=== PATIENT | female | born 1990 | race Caucasian/White ===

== ENCOUNTER → 2020-10-23 | Outpatient (CLI) | payer OTHER ==
[~2020-10-23] MED LIST: HYDROCODON-ACE1 EAC4 PO; IMURAN TAB 50 M50 MG PO; OMEPRAZOLE20 M1 PO; OYSTER SHELL C500 MG PO; PREDNISONE 10 M10 MG PO; URSODIOL300 MG PO; VITAMIN D21250 MCG PO
[2020-10-24 10:13] LABS: HBSAG SCREEN Negative (Negative); HEP B CORE AB, TOT Negative (Negative)
[2020-10-24 11:13] LABS: HCV AB <0.1 (0.0-0.9)
[2020-10-24 14:13] LABS: ALDOLASE 14.3 U/L (3.3-10.3)
[2020-10-26 14:13] LABS: QUANTIFERON MITOGEN VALUE >10.00 IU/mL (.); QUANTIFERON NIL VALUE 0.06 IU/mL (.); QUANTIFERON TB1 AG VALUE 0.18 IU/mL (.); QUANTIFERON TB2 AG VALUE 0.05 IU/mL (.); QUANTIFERON-TB GOLD PLUS Negative (Negative)
== END ==
LOC: LAB 14:05
PROVIDERS: Internal Medicine
DX: D89.9 Disorder involving the immune mechanism, unspecified (principal); G72.9 Myopathy, unspecified; R74.8 Abnormal levels of other serum enzymes; Z79.899 Other long term (current) drug therapy
CPT/HCPCS: 36415; 82085; 82550; 83615; 83874; 86038; 86235; 86704; 86803; 87340

== ENCOUNTER → 2020-11-15 | Outpatient (CLI) | payer OTHER | LOC: EMI 11:00 | DX: G72.9 Myopathy, unspecified (principal); R74.8 Abnormal levels of other serum enzymes; R60.0 Localized edema | CPT/HCPCS: 73718 ==

== ENCOUNTER → 2020-11-29 | Outpatient (CLI) | payer OTHER | LOC: OPSV2 12:00 | DX: Z01.812 Encounter for preprocedural laboratory examination (principal); M62.81 Muscle weakness (generalized) ==

== ENCOUNTER → 2020-11-30 | Day surgery (SDC) | payer OTHER | END | disposition home or self-care (01) | LOC: OR 06:11 | PROVIDERS: Surgery | PROC: 0KBT0ZX Excision of Left Lower Leg Muscle, Open Approach, Diagnostic (ICD-10-PCS; principal; 2020-11-30 07:30) | DX: G72.9 Myopathy, unspecified (principal); K74.3 Primary biliary cirrhosis; K75.4 Autoimmune hepatitis; I49.9 Cardiac arrhythmia, unspecified; Z79.52 Long term (current) use of systemic steroids; Z79.899 Other long term (current) drug therapy; Z20.822 Contact with and (suspected) exposure to COVID-19 | CPT/HCPCS: 84703; J0690; J1100; J1885; J2001; J2250; J2405; J2704; J3010; J7120 ==